=== PATIENT | male | born 1965 | race Caucasian/White ===

== ENCOUNTER 2022-11-13 08:29 | Day surgery (SDC) | payer OTHER ==
[~2022-11-13] VITALS: Ht 188 cm; Wt 88.5 kg
[~2022-11-13 08:29] MED LIST: ADDERALL20 MG PO; AMBIEN10 MG PO; ATIVAN0.5 MG PO; HYDROCODONE BIT1 TA7 PO; LISINOPRIL20 M1 PO; NEURONTIN800 MG PO; TRAZODONE100 MG PO; WELLBUTRIN XL300 MG PO
[2022-11-13] MEDS ORDERED: LORTAB 1010 MG PO ×2 (12:14→15:04)
[2022-11-13 14:09] VITALS: BP 163/82
== END 2022-11-13 14:30 | disposition home or self-care (01) ==
LOC: ORM 08:29
PROVIDERS: ATTEND Surgery
DX: K43.2 Incisional hernia without obstruction or gangrene (principal); M62.08 Separation of muscle (nontraumatic), other site; I10 Essential (primary) hypertension; F31.9 Bipolar disorder, unspecified
CPT/HCPCS: C1781; J0131